=== PATIENT | male | born 1965 | race African-American/Black ===

== ENCOUNTER 2025-09-07 06:09 | Observation (INO) ==
--- NOTE | 2025-08-27 09:19 | Anesthesiology Consultation ---
Date of Service August 27, 2025 Assessment & Plan (1) Encounter for pre-operative examination: - Infectious disease screening: Per assessment on 08/27/25- No known recent infectious disease contacts or current infectious disease symptoms. - Abnormal preop EKG: Notes Bifascicular block (RBBB + LAFB). No comparison EKGs. I spoke with patient view phone 08/27/25- he denies CP/SOB with a flight of stairs and denies cardiopulmonary limiting complaints. He does not believe previous 12-lead EKG has been done. Case reviewed with Dr. Dietrich. He feels patient okay to proceed as scheduled without further cardiac testing and/or evaluation from his perspective. Will forward preop EKG to PCP for continuity of care. - Acceptable risk for given surgery pending evaluation DOS. Chart Review Chart Review: Patient NOT seen in Pre Admission Testing History Surgery Operation Date: 09/07/25 07:30 Proposed Procedures p Robotic Assisted Laparoscopic Radical Retropubic Prostatectomy, Possible Open, Possible Pelvic Lymph Node Dissection - Heladio Farias MD Height/Weight Height: 5 ft 11 in Weight: 95.254 kg Allergies Allergy/AdvReac Type Severity Reaction Status Date / Time No Known Allergies Allergy Unknown Verified 08/27/25 08:14 Medications Home Medications Medication Instructions Recorded Confirmed Last Taken No Known Home Medications 08/27/25 08/27/25 Unknown Past Medical History Medical History History of COVID-19 02/2025, resolved Prostate cancer 03/2024 Past Family History Family History Mother , 62yo Esophagus cancer Father Prostate cancer Brother Prostate cancer Brother Prostate cancer Son No problems noted. Daughter No problems noted. Past Surgical History Surgical History Hx of colonoscopy Social History Smoking Status: Current some day smoker Smoking cigarettes per day: ~1 pack/week- advised Do You Dip or Chew Tobacco: No Hx Alcohol Use: Yes Alcohol type: beer alcohol intake frequency: a few times a week Hx Substance Use: Yes (advised) substance use type: marijuana Last Used Substance Other:: 08/26 Lab Results Anesthesia Preop Results Results Anesthesia Widget: WBC 7.32 K/ul (4.8-10.8) 11/25/25 Hgb 13.1 g/dL (14.0-18.0) L 08/17/25 Hct 41.9 % (42.0-52.0) L 08/17/25 Plt 221 K/uL (130-400) 08/17/25 Na 139 mmol/L (136-145) 08/17/25 K 4.1 mmol/L (3.5-5.1) 08/17/25 Cl 107 mmol/L (98-107) 08/17/25 CO2 24 mmol/L (21-32) 08/17/25 BUN 18 mg/dl (6-23) 08/17/25 Creat 0.85 mg/dl (0.6-1.4) 08/17/25 Glucose Level 105 mg/dl (70-99(Fasting)) H 08/17/25 Testing Laboratory Results Urine culture 08/17/25: No growth Electrocardiogram Date: 08/17/25 SR at 61bpm. Minimal voltage criteria for LVH, may be normal variant. RBBB. LAFB. *Bifascicular block* Chest X-Ray Date: 04/06/25 IMPRESSION: No acute cardiopulmonary abnormalities are identified. No typical pulmonary features of COVID-19.
[2025-09-07] MEDS: LR 15ML/HR IV SCH (06:53)
[2025-09-07] MEDS: HEPARIN SOD 5,000 UNIT/0.5 ML VIAL SC SCH (06:54)
[2025-09-07] MEDS ORDERED: ATROPINE SULFATE 0.1 MG/ML 10ML SYR IV PRN (07:09)
[2025-09-07] MEDS ORDERED: PROMETHAZINE HCL 6.25 MG in SODIUM CHLORIDE 0.9% 50 ML IV PRN (07:09)
[2025-09-07] MEDS ORDERED: MIDAZOLAM HCL 1 MG/ML 2ML VIAL ONE (07:13)
[2025-09-07] MEDS ORDERED: LIDOCAINE 2% 2 ML VIAL/AMP(20MG/ML) INFIL ONE (07:14)
[2025-09-07] MEDS ORDERED: PROPOFOL IV EMULSION 10 MG/ML 20 ML VIAL IV ONE (07:18)
[2025-09-07] MEDS ORDERED: ROCURONIUM BROMIDE 10 MG/ML 5 ML VIAL IV ONE ×2 (07:22→09:15)
--- NOTE | 2025-09-07 07:25 | History & Physical Bridge Note ---
Date of Service September 07, 2025 History & Physical Bridge Note I have examined the patient, reviewed the History & Physical and in the interval since the performance of the History & Physical I have noted the following changes of clinical significance: no changes noted
[2025-09-07] MEDS ORDERED: ONDANSETRON INJ 2 MG/ML 2 ML VIAL ONE (08:17)
[2025-09-07] MEDS ORDERED: DEXAMETHASONE SOD INJ 4 MG/ML VIAL ONE (08:17)
[2025-09-07] MEDS ORDERED: KETAMINE HCL 10MG/ML SYR ONE (08:18)
[2025-09-07] MEDS ORDERED: ePHEDrine sulfate 50 MG/5 ML SYR ONE (09:36)
[2025-09-07] MEDS: BUPIVACAINE 0.5 % 5 MG/1 ML MPF 30ML VIAL ONE (10:18)
[2025-09-07] MEDS: BUPIVACAINE LIPOSOME 1.3% 266 MG/20 ML VIAL ONE (10:19)
[2025-09-07] MEDS ORDERED: PHENYLEPHRINE 100MCG/ML 5ML SYR ONE (10:24)
[2025-09-07] MEDS ORDERED: SUGAMMADEX SODIUM 200 MG/2 ML VIAL IV ONE (10:25)
--- NOTE | 2025-09-07 10:57 | Operative Report ---
[facility] Post Operative Report Pre & Post Diagnosis Operation Date: 09/07/25 07:30 Pre-Op Diagnosis: Prostate Cancer Post-Op Diagnosis: Prostate Cancer I identified the patient and participated in the time-out.: Yes Procedure Operation Date: 09/07/25 07:30 Actual Procedures p Robotic Assisted Laparoscopic Radical Retropubic Prostatectomy(Not Applicable) - Heladio Farias MD Surgeon Heladio Farias MD Environmental Safety Specialist Aleksandar Ann, PAC Estimated Blood Loss 100 Findings Consistent with Post-Op Diagnosis Specimens 1. Periprostatic fat 2. Prostate and seminal vesicles Description of Procedure The patient was identified in the preoperative holding area, appropriate informed consents were reviewed and completed, and he was transported to the operating suite. Subcutaneous heparin was administered in the pre-operative holding area. Upon arrival in the operating suite, he received appropriate antibiotics and general anesthesia and was positioned supine and prepped in sterile fashion. A Grimes catheter was inserted in the sterile field. A Veress needle was passed per umbilicus with uniform insufflation of the abdomen to 15mmHg. He was placed in 26 degrees of Trendelenburg. A periumbilical incision was then made to accommodate a robotic port and entry was made using a visual obturator. Inspection of the abdomen was carried out, and there was no evidence of traumatic entry or injury secondary to the Veress needle. After confirming a clear anterior abdominal wall, ports were subsequently placed in standard robotic prostatectomy fashion without incident. To begin the robotic portion of the case, I inspected the pouch of Candido and there were no adhesions from the colon and there was very scant intra-abdominal fat. Anatomy was well identified. I then made an incision in the pouch of Candido, overlying the seminal vesicles. Both SVs as well as the ampullae of the vasa were entirely dissected, with the vasa transected 3cm from the prostate. Dissection posterior to the prostate was completed, splitting Denonvilliers' fascia. The medial umbilical ligaments were then controlled with bipolar electrocautery just inferior to the umbilicus. Following cauterization, they were divided utilizing monopolar cautery. A peritoneal incision was carried from this loc ation to the medial aspect of the internal inguinal rings bilaterally with care to avoid opening through the ring. This incision was concluded when the vas deferens was reached. Dissection of the bladder and prostate off of the posterior aspect of the pubic arch was completed allowing full visualization of the prostate. The fat overlying the prostate was removed en bloc and passed off the table as a specimen labeled "periprostatic fat". The endopelvic fascia was cleared during this portion of the procedure, and subsequently opened - first on the right and then the left. The incision through the endopelvic fascia began near the prostate-bladder junction and was carried to the apex with extreme care to preserve all lateral levator musculature as well as the periurethral musculature and sphincter complex. I additionally preserved the puboprostatic ligaments. I then controlled the DVC with a 2-0 V-lock suture in overlapping/figure of 8 fashion. I then turned my attention to with the plan of performing a lymph node dissection, however as I inspected I was able to identify the iliac vessels without any difficulty the circumflex veins were additionally were quite visible as well as the obturator nerve. There was essentially no tissue within the lymph node packet on either side and I elected not to perform lymph node dissection given the scant material. My attention then returned to the prostate, with identification of the bladder neck aided by gentle traction on the Grimes catheter and lateral to medial pressure at the presumed level of the bladder neck with the robotic instruments. An anterior cystotomy was made, the Grimes balloon deflated and the catheter guided through the incision to allow anterior retraction. I attempted to preserve maximal bladder neck musculature as I circumferentially dissected around the bladder neck. There was a noticeable protuberance Worrall of what I presume to be BPH seen at the posterior bladder neck. This was included with the specimen. This also was visible on his preoperative MRI. After incision through the posterior aspect of the mucosa, the dissection was carried through detrusor muscle until the bilateral ampullae of the vasa were identified. The previously dissected vasa and SVs were brought through the incision and used to elevated the prostate anteriorly. An incision in the lateral prostatic fascia was then made bilaterally to facilitate control of the vascular pedicles and preservation of the nerve bundles. Vasculature running along the posterior/lateral aspect of the prostate was preserved as well as the tissue containing the nerves. The pedicles were then controlled with a series of Weck clips. The apical attachments of the prostate were remaining at that stage. The DVC was divided after control with bipolar cautery over the prostate. Continuous inspection from anterior and lateral views allowed me to closely follow the apical contour of the prostate and maximally preserve urethral length and tissue. The prostate was entirely freed at that point, and collected in an EndoCatch bag before being moved out of the field of vision. Hemostasis was obtained with directed suture ligation of any bleeding vessels along the neurovascular bundles utilizing 3-0 v-Lock suture. Anastomosis of the bladder and urethra was completed utilizing a double armed V-Lock stitch. A new Grimes catheter was inserted and the anastomosis tested with irrigation. There was no evidence of leak. . The robot was undocked, the specimen extracted through expansion of the soraya- umbilical camera port. The fascia was closed with a series of 0-PDS figure of 8 stitches. All skin incisions were closed with 4-0 monocryl. All incisions and muscle layers were anesthesized with a combination of marcaine and Exparel. The case was concluded and the patient taken to the PACU in stable condition. Aleksandar Ann, PAC assisted from incision and closure. I attest to the content of the Intraoperative Record and any orders documented therein. Any exceptions are noted below.
[2025-09-07] MEDS: HYDROmorphone INJ 2 MG/ML SYR/VIAL IV PRN (10:59)
[2025-09-07 11:10] LABS: Hematocrit (blood only) 42.8 % (42.0-52.0); Hemoglobin 13.0 g/dL (14.0-18.0); Immature Granulocytes # (auto) 0.10 K/uL (0.01-0.20); Immature Granulocytes % (auto) 0.7 %; Mean Corpuscular Hemoglobin 23.4 pg (25.0-34.0); Mean Corpuscular Volume 77.1 fL (80.0-100.0); Platelet Count 195 K/uL (130-400); RDW Standard Deviation 39.8 fL (36.4-46.3); Red Blood Count 5.55 M/uL (4.70-6.10); White Blood Count 14.30 K/ul (4.8-10.8)
[2025-09-07 11:25] LABS: Anion Gap 6.0 (3-11); Blood Urea Nitrogen 16.0 mg/dl (6-23); Calcium 8.8 mg/dl (8.6-10.3); Carbon Dioxide 26.0 mmol/L (21-32); Chloride 106.0 mmol/L (98-107); Creatinine Clr Calc Pharmacy 93.1 ml/min; Glucose 170.0 mg/dl (70-99(Fasting)); Potassium 4.4 mmol/L (3.5-5.1); Sodium 138.0 mmol/L (136-145)
[2025-09-07] MEDS ORDERED: ACETAMINOPHEN 500 MG TAB PO PRN (11:53)
[2025-09-07] MEDS ORDERED: ONDANSETRON INJ 2 MG/ML 2 ML VIAL IV PRN (11:53)
[2025-09-07] MEDS ORDERED: HYDROmorphone INJ 0.5 MG/0.5 ML SYR IV PRN (11:53)
[2025-09-07] MEDS: SODIUM CHLORIDE 0.9% 1,000 ML IV SCH (12:43)
--- NOTE | 2025-09-07 15:00 | Anesthesiology Progress Note ---
Date of Service September 07, 2025 Anesthesia Post Procedure Vital Signs Vital Signs: Temp Pulse Pulse Resp BP BP Pulse Ox 09/07/25 13:53 36.5 C 87 18 148/97 H 96 09/07/25 13:10 69 16 125/81 99 09/07/25 12:55 36.4 C L 72 16 137/83 100 09/07/25 12:23 36.5 C 68 20 146/83 H 98 09/07/25 11:55 36.4 C L 74 16 156/86 H 98 09/07/25 11:34 36.4 C L 62 17 158/68 H 97 09/07/25 11:25 61 17 160/84 H 95 09/07/25 11:15 62 17 165/92 H 97 09/07/25 11:05 78 18 170/89 H 97 09/07/25 10:55 77 18 151/84 H 97 09/07/25 10:47 36.0 C L 80 18 159/71 H 100 09/07/25 06:30 36.6 C 63 18 168/101 H 98 O2 Del Method O2 Flow Rate 09/07/25 13:53 Room Air 09/07/25 13:10 Room Air 09/07/25 12:55 Nasal Cannula 3 09/07/25 12:23 Nasal Cannula 3 09/07/25 11:55 Nasal Cannula 3 09/07/25 11:34 Nasal Cannula 4 09/07/25 11:25 Nasal Cannula 4 09/07/25 11:15 Nasal Cannula 4 09/07/25 11:05 Oxymask 5 09/07/25 10:55 Oxymask 5 09/07/25 10:47 Oxymask 5 09/07/25 06:30 Room Air Transfer of Care Handoff Completed per policy Notes Mental Status: alert / awake / arousable and participated in evaluation Nausea / Vomiting: adequately controlled Pain: adequately controlled Airway Patency, RR, SpO2: stable & adequate BP & HR: stable & adequate Hydration State: stable & adequate Anesthetic Complications: no major complications apparent and Pt Satisfied with anesthetic care
[2025-09-07] MEDS: HEPARIN SOD 5,000 UNIT/0.5 ML VIAL SQ SCH (21:23)
[2025-09-07] MEDS: DOCUSATE SODIUM 100 MG CAP PO SCH (21:24)
[2025-09-08 06:17] LABS: Hematocrit (blood only) 31.1 % (42.0-52.0); Hemoglobin 9.8 g/dL (14.0-18.0); Immature Granulocytes # (auto) 0.05 K/uL (0.01-0.20); Immature Granulocytes % (auto) 0.4 %; Mean Corpuscular Hemoglobin 23.9 pg (25.0-34.0); Mean Corpuscular Volume 75.9 fL (80.0-100.0); Platelet Count 190 K/uL (130-400); RDW Standard Deviation 38.6 fL (36.4-46.3); Red Blood Count 4.10 M/uL (4.70-6.10); White Blood Count 12.12 K/ul (4.8-10.8)
[2025-09-08 06:35] LABS: Anion Gap 7.0 (3-11); Blood Urea Nitrogen 15.0 mg/dl (6-23); Calcium 8.0 mg/dl (8.6-10.3); Carbon Dioxide 25.0 mmol/L (21-32); Chloride 106.0 mmol/L (98-107); Creatinine Clr Calc Pharmacy 111.5 ml/min; Glucose 111.0 mg/dl (70-99(Fasting)); Potassium 4.1 mmol/L (3.5-5.1); Sodium 138.0 mmol/L (136-145)
--- NOTE | 2025-09-08 09:11 | Urology Progress Note ---
Date of Service September 08, 2025 Assessment & Plan (1) Prostate cancer: Plan Postop day #1 status post prostatectomy Urine clear Labs okay, slight hemoglobin drop Still waiting to pass some flatus We will wait until he ambulates and hopefully has a little bit of relief of his abdominal distention before we discharge him home Admission and Anticipated Discharge Date Admission Date: September 07, 2025 Subjective Doing okay Has some bloating and has not yet passed flatus and feels that he is really ready to Otherwise he is relatively comfortable and has had clear urine output Physical Exam Physical Exam: Incisions all appropriate Abdomen slightly distended, some bruising around his left lateral incision Results & Data Vital Signs (Past 12 Hours) Vital Signs Temp Pulse Resp BP BP Pulse Ox O2 Del Method 09/08/25 07:00 36.7 C 78 18 144/85 H 98 Room Air 09/08/25 03:00 36.7 C 74 16 115/74 94 Room Air 09/07/25 23:00 36.7 C 91 H 16 123/74 94 Room Air PG Care Time/CCT Total # of Minutes Spent Total Time Spent with Patient: Total time spent is greater than 50% in coordination of care (as documented) at patient's floor/unit and/or counseling patient: Coding Level of Care Code None Diagnoses Prostate cancer C61
[2025-09-08 12:02] VITALS: RESP 18
[2025-09-08] MEDS: HYDROmorphone INJ 0.5 MG/0.5 ML SYR IV PRN (20:26)
[2025-09-08 22:59] VITALS: O2SAT 95
[2025-09-09 07:44] VITALS: BP 143/83; PULSE 97; TEMP 98.2
[2025-09-09 08:52] LABS: Hematocrit (blood only) 28.6 % (42.0-52.0); Hemoglobin 9.0 g/dL (14.0-18.0); Immature Granulocytes # (auto) 0.04 K/uL (0.01-0.20); Immature Granulocytes % (auto) 0.4 %; Mean Corpuscular Hemoglobin 24.1 pg (25.0-34.0); Mean Corpuscular Volume 76.7 fL (80.0-100.0); Platelet Count 165 K/uL (130-400); RDW Standard Deviation 39.2 fL (36.4-46.3); Red Blood Count 3.73 M/uL (4.70-6.10); White Blood Count 9.78 K/ul (4.8-10.8)
[2025-09-09 09:09] LABS: Anion Gap 5.0 (3-11); Blood Urea Nitrogen 12.0 mg/dl (6-23); Calcium 8.1 mg/dl (8.6-10.3); Carbon Dioxide 26.0 mmol/L (21-32); Chloride 106.0 mmol/L (98-107); Creatinine Clr Calc Pharmacy 114.3 ml/min; Glucose 153.0 mg/dl (70-99(Fasting)); Potassium 3.9 mmol/L (3.5-5.1); Sodium 137.0 mmol/L (136-145)
--- NOTE | 2025-09-09 10:19 | Urology Progress Note ---
Date of Service September 09, 2025 Assessment & Plan (1) Prostate cancer: Plan: Has progressed appropriately Hemoglobin has drifted up slightly but I am not particular concerned about it For the time being I think he is safe for discharge home Will have a catheter removal on Saturday in the office Prescriptions have been sent Discharge placed Admission and Anticipated Discharge Date Admission Date: September 07, 2025 Subjective Subjectively doing much better has been passing some gas Ambulatory Tolerating a diet Anxious to go home Physical Exam Physical Exam: Incisions okay Does have some bruising around the left flank Urine clear Results & Data Vital Signs (Past 12 Hours) Vital Signs Temp Pulse Resp BP BP Pulse Ox O2 Del Method 09/09/25 07:43 36.8 C 97 H 18 143/83 H 95 Room Air 09/08/25 22:59 37.1 C 103 H 18 153/84 H 95 Room Air PG Care Time/CCT Total # of Minutes Spent Total Time Spent with Patient: Total time spent is greater than 50% in coordination of care (as documented) at patient's floor/unit and/or counseling patient: Coding Level of Care Code None Diagnoses Prostate cancer C61
--- NOTE | 2025-09-09 22:12 | Electrocardiogram Report ---
Test Reason : Blood Pressure : */* mmHG Vent. Rate : 92 BPM Atrial Rate : 92 BPM P-R Int : 162 ms QRS Dur : 100 ms QT Int : 366 ms P-R-T Axes : 51 -64 60 degrees QTcB Int : 452 ms Normal sinus rhythm Left anterior fascicular block Abnormal ECG Confirmed by Carlo Howard ([id number]) on 09/09/2025 10:11:43 PM Referred By: Heladio Farias Confirmed By: Carlo Howard
--- NOTE | 2025-09-14 11:57 | Discharge Summary ---
Date of Service September 14, 2025 Principal Diagnosis Prostate cancer Discharge Data Allergies Allergy/AdvReac Type Severity Reaction Status Date / Time No Known Allergies Allergy Unknown Verified 09/10/25 02:50 Procedures Performed Operation Date: 09/07/25 07:30 Actual Procedures p Robotic Assisted Laparoscopic Radical Retropubic Prostatectomy(Not Applicable) - Heladio Farias MD Hospital Course (1) Prostate cancer: This is a 60 year old patient admitted on 09/07/25 and underwent robotic assisted laparoscopic prostatectomy. He tolerated the procedure well and there were no complications. Transferred to the PACU post op and later to the med/surg floor for further care. He was given ancef for antibiotic prophylaxis. He was given heparin for DVT prophylaxis. Hemoglobin, hematocrit, and vital signs were monitored during his hospital stay and remained stable. Did not require any blood transfusions. There were no complications during his hospital stay. By post op day #2 the patient was tolerating a regular diet, pain was reasonably controlled with oral pain medicine. On post op day #2 the patient was discharged home. He was given printed discharge instructions including prescriptions for cipro and tramadol. Follow up approximately 1 week post op for catheter removal or sooner if there are problems or concerns. Total Time Total Time Spent Total Time Spent (In Minutes): 15 Discharge Plan Discharge Items Patient Disposition: Home - Self-Care Reason For Visit: Malignant Neoplasm of Prostate Discharge Diagnosis: Malignant Neoplasm of Prostate Activity: Per Instructions section Lifting: No more than 10 pounds Bathing Comment: Okay to shower after discharge, no tub bath or soaking Sexual Activity: Wait until after follow-up appointment Exercise/Sports: Wait until after follow-up appointment Driving/Machine Use: No driving while taking prescription pain medication Non-emergency contact: Surgeon and Urologist Call non-emergency contact if: your pain is not controlled, you have a fever, your temperature is above 101, your wound has increased redness, your wound has increased drainage and your wound pain has increased Follow-up/Referrals: Tadeo Macedo MD [Primary Care Provider] - [facility],Nurse [FAKE FOR SCHEDULES] - 09/13/25 9:10 am Diet: Regular Addtl Attending Provider Instructions: Please take all medications as prescribed and keep all follow-ups as scheduled. Please call our office at [phone] with any questions, concerns or need to reschedule appointments for any reason. We are happy to assist you Activity: We recommend having someone with you for the first few days after surgery to help care for you. For the first 2 weeks after surgery, we would like you to get up and walk around your house. However, we recommend limit physical activity that would increase your heart rate. This will allow your body to rest and heal. Take naps if you feel tired. Don't lift anything heavier than 10 pounds, mow the law or ride a bicycle until your follow-up appointment. Please avoid long car rides. Home Care: Unless directed otherwise, drink 6 to 8 glasses of water a day (enough to keep your urine light colored). This will also help keep a healthy flow of urine. We recommend using a stool softener for the first two weeks to avoid constipation. Grimes Catheter or Suprapubic Catheter care: Keep the catheter well secured with either a leg back or leg strap with large bag. Empty your bag when it's about half full. You may notice some blood in the bag. This is normal after surgery and while the catheter is in place. Use mild soap (such as Dove or Dial) and water to wash the catheter and the head of your penis daily, or more frequently if needed. Return to your normal diet, we encourage good protein intake to promote healing. You may shower as normal. Please avoid tub baths or soaking until catheter removed and incisions well healed. Wearing sweat pants while you have the catheter is recommended, they will be more comfortable. Follow-up Your follow up appointments for having your catheter removed, and follow up with your physician should already be scheduled. If you have any questions regarding this, please contact our office. Your final pathology report will be discussed at your physician follow-up appointment. Call [facility] at [phone] right away if you have any of the following: Chest pain or trouble breathing (call [phone] or go to the hospital) Fever of 101F or higher, uncontrolled vomiting Heavy bleeding, clots, or bright red blood from the catheter Catheter that falls out or stops draining Foul-smelling discharge from your catheter Redness, swelling, warmth, or increased pain at your incision site Drainage, pus, or bleeding from your incision Pending Studies at Discharge: No Stand-Alone Forms: My [facility], Smoking Cessation Medications and DC Order Prescriptions: No Action tramadol 50 mg tablet 50 mg PO Q6H PRN (Reason: pain) Qty: 20 0RF Discharge Orders: Discharge Order (Routine); Ordered 09/09/25 Ordered By: Heladio Farias Admission Data Admit Date/Time: 09/07/25 10:48 Attending Provider: Heladio Farias Admit Provider: Heladio Farias Primary Care Provider: Tadeo Macedo Other Interventions: Discharge Summary Assessment (RN) Last Done: 09/09/25 10:15 Coding Level of Care Code 92038 IN/OBS DISCH 30 MIN/LESS Diagnoses Prostate cancer C61
== END 2025-09-09 11:30 | disposition home or self-care (01) | DRG 708 ==
LOC: ASU 06:09 → 3E 10:48 → INTOOBSV 10:48